=== PATIENT | female | born 1980 | race Caucasian/White ===

== ENCOUNTER 2020-12-07 14:23 | Outpatient (CLI) | payer OTHER ==
--- NOTE | 2020-12-07 15:29 | SLEEP CARE CONSULTATION ---
Information from patient questionnaire entered by Naila Rizo. I have reviewed and concur with the information entered by Naila Rizo. This document represents the service I personally performed and the decisions made by , Felicitas Schaffer ARNP. History of Present Illness Service Date and Time: 12/07/2020 1423 Reason for Visit: New patient Chief Complaint: reports: Unrefreshed sleep, Snoring, Excessive daytime sleepiness, Observed pauses in breathing Date of Onset: couple years, maybe 2 Usual bedtime: 9 - 10 pm Time it takes to fall asleep: under 10 minutes Snores at night: Yes Observed to quit breathing while asleep: Yes Sleeps alone due to snoring: No Number of times waking at night: 2-3 Reasons for waking at night: reports: Snoring, Gasping for air (sometimes), Bathroom, Other (spouse nudging me due to snoring) Toss, Turn, or Twitch while sleeping: No Recalls having dreams: No Usually gets out of bed at: 5:30 - 6 am Feels refreshed in the morning: No Morning headache: Yes (occasionally, resolves around 2 hours; 2 times a week) Sleepy or fatigued during the day: Yes Ever fallen asleep while driving: No Takes day naps: No Dreams during day naps: No Prior sleep studies: No Additional HPI information: I had the pleasure of seeing PANDA HAWLEY today regarding the possibility of her having a sleep disorder. Her current complaints are observed pauses in breathing, snoring and unrefreshed sleep. Her has told her she snores loudly and a lot. She has woken herself up snoring and gasping. Her and kids have heard her gasping in her sleep. She has had pauses in breathing while sleeping. She will fall asleep whenever she tries to sit and watch a movie. She is tired throughout the day and find herself nodding in front of her computer. She denies drowsy driving unless it is a long drive. She has never had an accident. She will fall asleep if she is a passenger for long periods of time. She states her father had sleep apnea and was treated. One of her brother and an uncle have been diagnosed and are being treated. Her mother snored but of a heart attack at age 5959 years old. She is pre-diabetic and has PCOS. - Parasomnia Symptoms Ever been unable to move upon waking from sleep: No Walks in sleep: No Talks in sleep: Yes Ever acted out dreams in sleep: No Ever felt weak in the knees when startled or emotional: No Bothered by creepy, crawly, restless sensations in legs: No Problems with memory or concentration: Yes (retention and memory; feels forgetful; not all the time) Subjective Initial [place] Sleepiness Scale score: 14 (in 2020) Past Medical History Past Medical History: reports: Diabetes (pre), Other (Vitamin D deficiency; PCOS). 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 Patient is and lives in [place]. Have you smoked in the past 12 months: No Cigarettes per day (20/pack): 10 Years of smokin Quit date: 2013 Smoking Pack Years: 7.5 Alcohol use: Yes Alcohol amount and frequency: 1-2 drinks once a month Caffeine use: Yes Caffeine amount and frequency: 2 cups of coffee daily Family History Family history of sleep disordered breathing: Yes Family Hx Sleep Apnea: Mother: Snoring, Father: Snoring, Sleep apnea - Treated (uncle), Sibling: Snoring, Sleep apnea - Treated, Grandparent: Snoring, Other: Sleep apnea - Treated Allergies and Home Medications Drug allergies reviewed: Yes (NKDA) Home medication list reviewed: Yes Allergy and home medication list: Metformin 500 mg daily Vitamin D 50,000 IU once a week Review of Systems Weight gain over past 5 years: 50 plus Cardiovascular: denies: high blood pressure Gastrointestinal: denies: heartburn Neurological: denies: headaches Psychiatric: denies: anxiety, depression Ear/Nose/Throat: reports: tonsillectomy, wisdom teeth removed Immunologic: denies: allergies to food or environment Physical Exam Blood Pressure: 128/71 Cuff size: long Heart Rate: 76 O2 Saturation: 97 Height: 5 ft 4 in Weight: 298 lb Body Mass Index: 51.1 BMI Classification: Morbidly Obese Neck circumference: 18.6 (inches) Mouth and throat: narrow oropharynx Soft palate: long Hard palate: normal Uvula visualization: 25% Mallampati Class III Tongue: enlarged in size with teeth gonsalves on lateral edges Tonsils: absent bilaterally Neck: normal w/o lymphadenopathy or thyromegaly Heart: regular rate and rhythm Lungs: clear bilaterally Impression and Plan 1. Suspected Obstructive Sleep Apnea-Hypopnea Syndrome, as suggested by a history of loud and irregular snoring, observed cessation of breath while asleep, gasping or choking in sleep, morning headache, unrefreshed sleep, cognitive impairment, and excessive daytime sleepiness. Narrow oropharynx and obesity are common predisposing factors for obstructive sleep apnea-hypopnea syndrome. I recommend proceeding to polysomnography to confirm the diagnosis and to assess severity. If the patient has significant sleep disordered breathing, a manual CPAP titration study will also be performed to find the optimal treatment pressure. I informed the patient of what the sleep studies involve and after some discussion, obtained agreement to proceed. The pathophysiology of obstructive sleep apnea-hypopnea syndrome was discussed with the patient and health risks of cardiovascular and cerebrovascular disease if not treated. Risks of drowsy driving discussed in detail and patient advised to avoid long distance driving and to candy puller at the first sign of drowsiness. Patient agreed to plan. * Schedule polysomnography +- manual CPAP titration study and return in 1-2 weeks after the study to discuss result and initiate therapy. * Avoid long distance driving or driving when feeling sleepy. * Avoid alcohol, sedative and muscle relaxant around bedtime. * Attempt to lose weight. * Review instructions provided by trained office staff on how to prepare for the sleep study. * Return for follow-up after sleep study completed. Counseling Topics: Weight loss health impact Visit Type: In Office Time Spent with Patient (minutes): 32 Provider Statement: I spent 100% of the Face to Face Visit with the patient with greater than 50% spent counseling the patient and coordination of care.
[2020-12-07 15:30] VITALS: BP 128/71
== END 2020-12-07 14:24 | disposition home or self-care (01) ==
LOC: SC 14:23
PROVIDERS: ATTEND Nurse Practitioner Family
DX: R06.83 Snoring (principal); R51.9 Headache, unspecified; G47.8 Other sleep disorders; G47.10 Hypersomnia, unspecified; R06.81 Apnea, not elsewhere classified; E66.01 Morbid (severe) obesity due to excess calories; Z68.43 Body mass index [BMI] 50.0-59.9, adult
CPT/HCPCS: 99203; 99212

== ENCOUNTER 2021-01-05 19:27 | Outpatient (CLI) | payer OTHER | END 2021-01-05 19:28 | disposition home or self-care (01) | LOC: SC 19:27 | PROVIDERS: ATTEND Nurse Practitioner Family | DX: G47.33 Obstructive sleep apnea (adult) (pediatric) (principal); E66.01 Morbid (severe) obesity due to excess calories; Z68.43 Body mass index [BMI] 50.0-59.9, adult | CPT/HCPCS: 95810 ==

== ENCOUNTER 2021-01-12 08:03 | Outpatient (CLI) | payer OTHER ==
--- NOTE | 2021-01-12 08:25 | SLEEP CARE CONSULTATION ---
Information from patient questionnaire entered by Naila Rizo. I have reviewed and concur with the information entered by Naila Rizo. This document represents the service I personally performed and the decisions made by , Felicitas Schaffer ARNP. History of Present Illness Service Date and Time: 01/12/2021 08 Initial [place] Sleepiness Scale score: 14 (in 2020) Current [place] Sleepiness Scale score: 12 Additional HPI information: PANDA HAWLEY returns via Telehealth visit for follow up and results of the recently performed polysomnography. I explained the pathophysiology behind obstructive sleep apnea. We then spent quite a bit of time discussing different treatment options. For mild obstructive sleep apnea, surgery and oral appliance are alternatives to nasal CPAP therapy but in moderate or severe cases, nasal CPAP is the most effective and reliable treatment. Because apnea is primarily in supine position, then positional management therapy could be effective. Methods discussed such as positioning with pillows, using a T-shirt with tennis balls in the back, and shown commercial products that have a pillow format on back to prevent supine sleep. I reviewed the impact of weight changes on sleep apnea and strongly recommended losing weight. After some discussion, the patient opted to go with the nasal CPAP therapy. Nasal autoCPAP set at 4-15 cmH20 will be ordered with rationale explained. A manual titration study will be ordered if unable to find optimal pressure with office adjustments. I explained how CPAP machine works and what to expect when using the machine. Using CPAP every night in order to get used to it was emphasized. Patient advised to put CPAP mask on before getting into bed so as not to fall asleep without CPAP. To assist acclimation to CPAP use, it could also be used for a short time during day while reading or watching TV. The patient was instructed to call the CPAP supplier to discuss any mechanical problem that may occur. If the mask given is uncomfortable or is difficult to keep on through the night even with adjustment, contact the CPAP supplier as many will replace with another mask style if notified before 30 days. If snoring or perceives is not getting enough air or too much air from the machine, notify this office. AAS patient education PAP tips reviewed and will be sent to patient. Patient counseled not drink alcohol less than 4 hours before bedtime as it can increase snoring and apnea. Patient was cautioned about risks of drowsy driving until sleepiness symptoms resolve. Sleep Study - Results Type of Sleep Study: Polysomnography Prior sleep studies: No Polysomnography/Home Sleep Study results: IMPRESSION: The quality of the study is good. The patient had normal sleep efficiency. Despite moderate sleep fragmentation, the sleep architecture was also normal. Respiratory monitoring showed moderate obstructive sleep apnea-hypopnea (AHI = 23.6) associated with frequent arousals, oxyhemoglobin desaturation and moderate hypoxia (andrew oxygen saturation of 78%). Baseline oxygen saturation was normal. The respiratory events occurred more frequently during supine sleep (supine AHI = 28.7; non-supine = 16.09). Snore was light to loud in intensity. There was no significant periodic leg movement of sleep. Cardiac rhythm was normal sinus rhythm without significant arrhythmia. No abnormal behavior (parasomnia) observed during the night. Allergies and Home Medications Home medication list reviewed: Yes (no changes) Review of Systems Review of systems same as previous: Yes (no changes) Physical Exam Vital signs obtained and entered by: Telehealth visit to reduce exposure during Covid pandemic Height: 5 ft 4 in Impression and Plan 1. Obstructive Sleep Apnea-Hypopnea Syndrome, moderate, with lowest oxygen saturation of 78%. Obviously this is the cause of the patients symptoms of unrefreshed sleep, and excessive daytime sleepiness. Positive pressure therapy could benefit pre-diabetes. As mentioned above, the patient will be started on nasal autoCPAP therapy with pressure set at 4-15 cmH2O. A manual titration study will be completed if unable to find optimal treatment pressure with office adjustments. Compliance guidelines also reviewed. A copy of compliance guidelines will be given for reference at check out. Because the apnea is more severe supine, I instructed to avoid sleeping supine using pillow positioning until able to start CPAP use. * Nasal auto CPAP therapy, pressure at 4-15 cm H2O. * Attempt to lose weight. * Avoid alcohol consumption near bedtime. * Avoid supine sleep until using CPAP. * The patient is again cautioned about driving until sleepiness completely resolves. * Return one month after CPAP obtained. I will assess response to therapy and compliance at that time. Counseling Topics: Weight loss health impact Visit Type: Telehealth Video Video Type: VSee Patient Location: Home Location of Provider: Office Patient agrees and consents to this telehealth visit type: Yes Patient agrees to have their insurance billed: Yes Time Spent with Patient (minutes): 20 Provider Statement: I spent 100% of the Telehealth Video Call with the patient with greater than 50% spent counseling the patient and coordination of care.
== END 2021-01-12 08:04 | disposition home or self-care (01) ==
LOC: SC 08:03
PROVIDERS: ATTEND Nurse Practitioner Family
DX: G47.33 Obstructive sleep apnea (adult) (pediatric) (principal)

== ENCOUNTER 2022-12-27 15:33 | Outpatient (CLI) | payer OTHER ==
--- NOTE | 2022-12-27 16:10 | Sleep Patient Instructions ---
Sleep Center Visit Summary - Patient Visit Information Reason for Visit: Annual follow up for sleep apnea - Patient Instructions Additional Instructions: You will be completing a sleep study, either an in-lab polysomnography (PSG) or home sleep study (HST). You will follow-up in the sleep care office after the sleep study is completed to hear the results and talk about therapy, if needed. You will be called by our office staff to schedule this appointment, but you may contact us with any questions. - Clinic Information Contact: [facility] [address] [place] [id number] [email or web address] T: [phone]
--- NOTE | 2022-12-27 16:17 | SLEEP CARE CONSULTATION ---
Information from patient questionnaire entered by Jillian Cisneros. I have reviewed and concur with the information entered by Jillian Cisneros. This document represents the service I personally performed and the decisions made by , Felicitas Schaffer ARNP. History of Present Illness Service Date and Time: 12/27/2022 1533 Previous diagnosis: Moderate, Obstructive Sleep Apnea-Hypopnea Syndrome AHI: 23.6 (in 2020) Reason for follow up: annual (LAST SEEN 12/2020 NO CPAP) Equipment type: CPAP (ResMed Airsense 10, s/u 01/2021) Equipment obtained from: Other ([facility]; getting supplies) Mask style: Full face Backup mask available: No (will keep old mask when replaced) Last cushion change: 2 weeks Prior sleep studies: No Type of Sleep Study: Polysomnography HPI additional information: PANDA HAWLEY was diagnosed to have moderate, AHI 23.6, obstructive sleep apnea-hypopnea syndrome and returned today for CPAP therapy annual follow-up. He has not been back to our office since he was set up on CPAP in 12/2020. Sleep Study - Results Type of Sleep Study: Polysomnography Prior sleep studies: No CPAP Compliance Data - Data Reviewed with Patient Average duration of nightly device use: 5 hours 26 minutes Compliance rate %: 23 (44/180 days used; 63% in last 30 days) Current pressure setting (cmH2O): 4-15 (median 5.4, avg 9.5, max 11.4) Average residual AHI: 1.0 Central apnea: 0.7 Obstructive apnea: 0.1 Average large leak: 0.3 L/min Subjective Missed days of use due to: reports: mask issues Patient concerns: reports: mask discomfort, other (struggling with hose; sometimes more tired when using CPAP). denies: aerophagia, air blowing in eyes, mask leak noise, condensation in mask/hose, nasal congestion, dry mouth, nose, throat, epistaxis Observed to snore while using device: No Current pressure setting perceived as: comfortable On therapy, patient: reports: sleeping better, more rested overall, other (sometimes not feeling more rested due to more sleep interruptions). denies: drowsiness while driving Initial [place] Sleepiness Scale score: 14 (in 2020) Current [place] Sleepiness Scale score: 9 (12/27/22) Allergies and Home Medications Known drug allergies: No Drug allergies reviewed: Yes Home medication list reviewed: Yes (no changes) Review of Systems Review of systems same as previous: No (Vertical Sleeve Gastrectomy 06/2021) Physical Exam Vital signs obtained and entered by: JILLIAN Mackey MA Blood Pressure: 118/62 (LEFT ARM) Cuff size: regular Heart Rate: 64 O2 Saturation: 99 Height: 5 ft 4 in Weight: 184 lb Body Mass Index: 31.6 BMI Classification: Obese Impression and Plan 1. Obstructive Sleep Apnea-Hypopnea Syndrome, moderate, with fair treatment compliance and good apnea control. On CPAP therapy, the patient has better sleep quality and is more rested overall. She states that sometimes she does not feel more rested because she is waking wrestling with the hose of the mask. She has lost about 110 pounds since our last visit. She feels the mask is not fitting her well and she is getting more air leaks waking her up at night. I will have her do a mask refitting to get a better fitting mask cushion. She should also get a new sleep study due to the weight loss. Her sleep apnea severity may have changed because of the fantastic weight loss she has achieved. She voice agr eement. I will see if we can get a new sleep study authorized and then see her in clinic with results later. I will update her prescription for supplies and adjust her pressures to reflect the pressures being used. She was instructed to let me know if the pressure change is uncomfortable for further adjustments. She voiced understanding. Patient's apnea severity and rationale for treatment to reduce apnea, improve sleep quality and reduce cardiovascular and cerebrovascular events was reviewed. 2. Obesity, unspecified. Currently patients BMI is 31.6. She has lost 110 pounds since 01/2021 after gastric surgery. Obesity increases the risk of apnea, CPAP pressure requirements and overall health risks especially cardiovascular and diabetes. Thus patient is advised to continue to try to lose weight. * Mask refitting * Change auto CPAP pressure to 6-12 cmH2O * PSG/HST to re-verify diagnosis and severity due to weight loss * Notify me if snoring with mask or feeling that the pressure is too much or too little * Continue to try to lose weight * Call this office if any problems using CPAP * Return for follow up in 1-2 months or after PSG, or sooner if concerns arise Counseling Topics: Spare mask, Weight loss health impact Prescriptions: Device supplies Visit Type: In Office Time Spent with Patient (minutes): 28 Provider Statement: I spent 100% of the Face to Face Visit with the patient with greater than 50% spent counseling the patient and coordination of care.
[2022-12-27 16:32] VITALS: BP 118/62
== END 2022-12-27 15:34 | disposition home or self-care (01) ==
LOC: SC 15:33
PROVIDERS: ATTEND Nurse Practitioner Family
DX: G47.33 Obstructive sleep apnea (adult) (pediatric) (principal); E66.9 Obesity, unspecified; Z68.31 Body mass index [BMI] 31.0-31.9, adult
CPT/HCPCS: 99212; 99213

== ENCOUNTER 2023-02-01 19:44 | Outpatient (CLI) | payer OTHER | END 2023-02-01 19:45 | disposition home or self-care (01) | LOC: SC 19:44 | PROVIDERS: ATTEND Nurse Practitioner Family | DX: G47.33 Obstructive sleep apnea (adult) (pediatric) (principal) | CPT/HCPCS: 95810 ==

== ENCOUNTER 2023-02-21 15:51 | Outpatient (CLI) | payer OTHER ==
--- NOTE | 2023-02-21 15:47 | SLEEP CARE CONSULTATION ---
Information from patient questionnaire entered by Katlyn Cisneros. I have reviewed and concur with the information entered by Katlyn Cisneros. This document represents the service I personally performed and the decisions made by , Felicitas Schaffer ARNP. History of Present Illness Service Date and Time: 02/21/2023 1540 Initial [place] Sleepiness Scale score: 14 (in 2020) Current [place] Sleepiness Scale score: 8 (02/21/23) Additional HPI information: PANDA HAWLEY returns via video telehealth visit for follow up and results of the recently performed polysomnography. The patient was informed of the following findings: No significant sleep disordered breathing with an average AHI of 0.6 and andrew oxygen saturation of 94%. I explained the pathophysiology behind obstructive sleep apnea. Patient does not have sleep apnea and was advised how weight gain could increase the risk of developing sleep apnea in the future. I strongly encouraged the patient to lose weight. Patient has light to moderate snoring. Snoring can be reduced by weight loss. Weight loss is best achieved with diet consult. Patient instructed to contact PCP for referral. Snoring can also be treated with an oral appliance from a dentist. Advised to check insurance coverage. In addition, an ENT evaluation can be do to see if other treatment is indicated. Patient counseled not drink alcohol less than 4 hours before bedtime as it can increase snoring and apnea. Patient was cautioned about risks of drowsy driving until sleepiness symptoms resolve. Patient denies drowsy driving. Sleep Study - Results Type of Sleep Study: Polysomnography (COMPLETED 02/01/23) Prior sleep studies: No Polysomnography/Home Sleep Study results: IMPRESSION: The quality of the study is good. The patient had normal sleep efficiency. The sleep architecture was relatively normal as well considering the first night effect. Respiratory monitoring showed no significant sleep disordered breathing (AHI = 0.6) or hypoxia (andrew oxygen saturation of 94%). The patient slept adequately in supine position (supine AHI = 0.4; non-supine = 2.06). Snore was intermittent and light to moderate in intensity. There was no significant periodic leg movement of sleep. Cardiac rhythm was normal sinus rhythm without significant arrhythmia. No abnormal behavior (parasomnia) observed during the night Allergies and Home Medications Known drug allergies: No Drug allergies reviewed: Yes Home medication list reviewed: Yes (no changes) Review of Systems Review of systems same as previous: Yes (no changes) Physical Exam Vital signs obtained and entered by: KATLYN Mackey MA Height: 5 ft 4 in (PER PT) Weight: 178 lb (PER PT) Body Mass Index: 30.5 BMI Classification: Obese Impression and Plan Snoring but no significant sleep disordered breathing. Her weight loss has resolved her previous sleep apnea and no further treatment is needed. She may discontinue CPAP use at this time. She voiced understanding and agreement. Patient advised that often weight loss will reduce snoring as well as apnea risk. An oral appliance can also be used for snoring. This would require a dental consultation. Patient cautioned not to use other online appliances as can cause bite issues. Patient is advised to check if insurance will cover. An ENT consult can also be helpful to determine if any other treatment is an option. 2. Obesity, unspecified. Currently patients BMI is 30.5. Obesity increases the risk of apnea, CPAP pressure requirements and overall health risks especially cardiovascular and diabetes. Thus patient is advised to continue to try to lose weight. * Discontinue CPAP * Continue to try to lose weight * The patient is cautioned about driving until sleepiness is completely resolved. * Return as needed for follow up. Counseling Topics: Weight loss health impact Visit Type: Telehealth Video Video Type: [employer] Patient Location: Home Location of Provider: Office Patient agrees and consents to this telehealth visit type: Yes Patient agrees to have their insurance billed: Yes Time Spent with Patient (minutes): 12 Provider Statement: I spent 100% of the Telehealth Video Call with the patient with greater than 50% spent counseling the patient and coordination of care.
== END 2023-02-21 15:52 | disposition home or self-care (01) ==
LOC: SC 15:51
PROVIDERS: ATTEND Nurse Practitioner Family
DX: R06.83 Snoring (principal); E66.9 Obesity, unspecified; Z68.30 Body mass index [BMI] 30.0-30.9, adult

== ENCOUNTER 2023-07-08 18:40 | Emergency (ER) | payer OTHER ==
--- NOTE | 2023-07-08 19:11 | ED Physician Documentation ---
History of Present Illness - Stated complaint Stated Complaint: FALL/L HAND INJ - Chief complaint Chief Complaint: Trauma Ext - History obtained from History obtained from: Patient - Additonal information Additional information: She is right-handed and had a trip and fall about an hour and a half ago. She struck her left hand which hurts. She did hit her face and her leg but neither of those hurts. There was no loss of consciousness and she is walking okay. She declines pain medication on initial evaluation. 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 - Present Medications Home Medications: Ambulatory Orders Medication Instructions Recorded Confirmed Phentermine HCl 37.5 mg PO DAILY 04/25/23 04/25/23 metFORMIN [Glucophage] 500 mg PO DAILY 04/25/23 04/25/23 - Allergies Allergies/Adverse Reactions: Allergies Allergy/AdvReac Type Severity Reaction Status Date / Time No Known Drug Allergies Allergy Verified 04/25/23 20:24 - Social History Does the pt smoke?: No Smoking Status: Never smoker Does the pt drink ETOH?: No Does the pt have substance abuse?: No - Immunizations Immunizations are current?: Yes - POLST Patient has POLST: No PD ED PE NORMAL - Vitals Vital signs reviewed: Yes - General General: Alert and oriented X 3, No acute distress - HEENT HEENT: PERRL - Neck Neck: Supple, no meningeal sign, No bony TTP - Extremities Extremities: Other (She is bruised tender and swollen over the fourth and fifth left metacarpals. Unable to range them.) - Neuro Neuro: Alert and oriented X 3, Normal speech Eye Opening: Spontaneous Motor: Obeys Commands Verbal: Oriented GCS Score: 15 Results - Vitals Vitals: Vital Signs - 24 hr 07/08/23 18:51 Temperature 37 C Heart Rate 60 Respiratory 18 Rate Blood Pressure 123/77 O2 Saturation 100 Oxygen O2 Source Room air - Rads (name of study) L hand XR Relevant Findings:: Final report received, EMP independent interpretation of test Procedures - Splint (location) - Minor L hand Splint applied by: Physician Type of splint: Fiberglass, Ulnar gutter Other: Patient tolerated well, No complications, Neurovascular intact - Reduction Body part reduced: Left, Finger Fracture or dislocation: Fracture dislocation Anesthesia: Digital block (1% buffered lidocaine and pretx with 1mg im dilaudid) Reduction aftercare: Alignment improved Departure - Departure Disposition: 01 Home, Self Care Clinical Impression: Finger fracture, left Qualifiers: Encounter type: initial encounter Finger: little finger Fracture type: closed Phalanx: proximal Fracture alignment: displaced Qualified Code(s): S62.617A - Displaced fracture of proximal phalanx of left little finger, initial encounter for closed fracture Condition: Good Record reviewed to determine appropriate education?: Yes Instructions: ED Fx Finger Closed Follow-Up: Orthopedic Care [Provider Group] - Within 1 week Comments: You are seen tonight for left small finger fracture. After some pain medication and a digital block it was reduced and splinted. You should keep that splint on and dry, do not remove it. Follow-up with the orthopedics office. See the number on this form. Tylenol and/or ibuprofen as needed for pain. You can also ice it through the splint as well. Elevate as well. Return for new or worsening symptoms. Forms: Activity restrictions
[2023-07-08] MEDS ORDERED: BUFFERED LIDOCAINE 10 ML SYRINGE SUBQ STA (19:28)
[2023-07-08] MEDS ORDERED: HYDROmorphone 1 MG/ML CARPUJECT IM STA (19:30)
--- NOTE | 2023-07-08 19:46 | XRAY Report ---
PROCEDURE: Hand 3 View LT INDICATIONS: Trauma TECHNIQUE: 4 views of the hand(s) acquired. COMPARISON: None. FINDINGS: Bones: Acute slightly comminuted fracture involving fifth proximal phalangeal base with slight media l and dorsal displacement at fracture site. No suspicious bony lesions. Soft tissues: No suspicious soft tissue calcifications or masses. IMPRESSION: Acute slightly comminuted and displaced fifth proximal phalangeal base fracture as above. Reviewed by: Bryn Matthews MD on 07/08/2023 7:44 PM PST Approved by: Bryn Matthews MD on 07/08/2023 7:44 PM PST Station ID: [id number]
[2023-07-08] MEDS ORDERED: lidocaine 1% 20 ML MDV SUBQ ONE (20:08)
[2023-07-08] MEDS ORDERED: HYDROcod/ACET 5/325 Prepack 4 PO STA (20:48)
[2023-07-08 21:23] VITALS: BP 112/72; O2SAT 99
== END 2023-07-08 21:15 | disposition home or self-care (01) ==
LOC: ED 18:40
DX: S62.617A Displaced fracture of proximal phalanx of left little finger, initial encounter for closed fracture (principal); W01.0XXA Fall on same level from slipping, tripping and stumbling without subsequent striking against object, initial encounter
CPT/HCPCS: 26755; 73130; 96372; 99283; J1170